=== PATIENT | male | born 1985 | race Caucasian/White ===

== ENCOUNTER 2021-03-06 12:32 | Emergency (ER) | payer OTHER ==
[2021-03-06] MEDS ORDERED: IBUPROFEN600 MG PO (13:48)
== END 2021-03-06 13:58 | disposition home or self-care (01) ==
LOC: ER1 12:32
DX: S50.12XA Contusion of left forearm, initial encounter (principal); F17.210 Nicotine dependence, cigarettes, uncomplicated; W22.8XXA Striking against or struck by other objects, initial encounter
CPT/HCPCS: 73090; 99283

== ENCOUNTER 2021-04-24 20:24 | Emergency (ER) | payer OTHER ==
[~2021-04-24 20:24] MED LIST: IBUPROFEN600 MG PO
== END 2021-04-24 22:52 | disposition home or self-care (01) ==
LOC: ER1 20:24
DX: J20.9 Acute bronchitis, unspecified (principal); Z20.822 Contact with and (suspected) exposure to COVID-19; F17.200 Nicotine dependence, unspecified, uncomplicated
CPT/HCPCS: 99283; U0002